=== PATIENT | female | born 1955 | race Two or more races ===

== ENCOUNTER 2017-12-06 09:51 | Emergency (ER) | payer OTHER ==
[~2017-12-06] VITALS: Ht 162.6 cm; Wt 54.4 kg
[2017-12-06] MEDS ORDERED: NKM (10:07)
[2017-12-06] MEDS ORDERED: Bacitracin Oint UD TOPIC ONE (11:00)
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
[2017-12-06 11:50] VITALS: BP 133/83
[2017-12-06] MEDS ORDERED: IBUPROFEN600 MG ORAL (12:01)
[2017-12-06] MEDS ORDERED: ACETAMINOPHEN500 M3 ORAL (12:01)
[2017-12-06 12:08] VITALS: BP 133/83
== END 2017-12-06 12:07 | disposition home or self-care (01) ==
LOC: EMR 10:35
DX: T22.012A Burn of unspecified degree of left forearm, initial encounter (principal); T22.011A Burn of unspecified degree of right forearm, initial encounter; T31.0 Burns involving less than 10% of body surface; X10.2XXA Contact with fats and cooking oils, initial encounter; Y93.89 Activity, other specified; Y92.511 Restaurant or cafe as the place of occurrence of the external cause; Y99.0 Civilian activity done for income or pay
CPT/HCPCS: 99282